=== PATIENT | male | born 1935 | race African-American/Black ===

== ENCOUNTER 2017-02-05 06:06 | Day surgery (SDC) | payer OTHER, BC ==
[~2017-02-05] VITALS: Ht 182.9 cm; Wt 77.1 kg
--- NOTE | ~2017-02-05 | EKG ---
[address] [address] ELECTROCARDIOGRAM REPORT Name: ISIAHEMELIA L Room #: 150-9 [facility]#: [id number] Admission: 02/05/17 Attend Phys: Gab Escamilla MD Discharge: Date of : 39 Report #: [id number] THIS REPORT FOR: //name// [facility] Test Date: 2017-02-05 Test Time: 10:57:01 Pat Name: EMELIA JOYCE Department: Room: 150 9 Gender: M Electrical And Instrumentation Mechanic: MELBA : 1935 Requested By: Gab Escamilla Order Number: [id number] MD: Hari Yoon Measurements Intervals [place] Rate: 58 P: 50 DC: 167 QRS: -19 QRSD: 89 T: 73 QT: 458 QTc: 450 Interpretive Statements Sinus rhythm Left ventricular hypertrophy No previous ECG available for comparison Electronically Signed On 02-06-2017 7:50:31 CDT by Hari Yoon [email or web address] <ELECTRONICALLY SIGNED> By: Hari Yoon MD, [facility] 02/06/17 0750 1057 1057 Hari Yoon MD, FACC /EPI
--- NOTE | ~2017-02-05 | O ---
[facility] [place] [address] OPERATIVE REPORT Name: EMELIA JOYCE Nahun Room #: 150-9 [facility]#: [id number] Admission: 02/05/17 Attend Phys: Gab Escamilla MD Discharge: Date of : 39 Report #: [id number] THIS REPORT FOR: //name// CC: Kelly Escamilla DATE OF OPERATION: 02/05/2017. PREOPERATIVE DIAGNOSIS: Sternal pain syndrome. FINAL DIAGNOSIS: Sternal pain syndrome. OPERATIVE PROCEDURE PERFORMED: Sternal wire removal. SURGEON: Dr. Gab Escamilla. [employer]: None. ANESTHESIA: General. OPERATIVE INDICATIONS: The patient is a 81-year-old male who underwent coronary bypass grafting by ne at [facility] approximately one year ago. The patient has represented with complaints of persistent sternal incisional pain. On examination, he has point tenderness over the wires. The sternum was stable and had completely healed. He is thus brought to the operating room now for sternal wire removal. OPERATIVE SUMMARY: The patient brought to the operating room, placed on the OR table in supine position. After anesthesia was induced via the general endotracheal route, the patient was prepped and draped in sterile fashion with ChloraPrep. We made small incision over each wire. Dissection was carried down to the sternal wires. The wires were cut and were removed. There were total of 3 incisions made. We then closed the wound in multiple layers with absorbable suture. The procedure was completed. The patient was taken to the postanesthesia care unit in stable condition. <ELECTRONICALLY SIGNED> By: Gab Escamilla MD 02/05/17 1258 1231 1247 Gab Escamilla MD /nt
[~2017-02-05 06:06] MED LIST: ASPIR 8181 M1 PO; FLOMAX0.4 MG PO; LOPRESSOR25 PO; NORVASC5 MG PO; OMEPRAZOLE40 MG PO; PRINIVIL40 MG PO; ZETIA10 MG PO
[2017-02-05 10:05] LABS: URINE BILIRUBIN NEGATIVE (Negative); URINE BLOOD TRACE (Negative); URINE COLOR YELLOW; URINE GLUCOSE-RANDOM* NEGATIVE (Negative); URINE KETONES NEGATIVE (Negative); URINE NITRITE NEGATIVE (Negative); URINE PROTEIN (DIPSTICK) 1+ (Negative); URINE SPECIFIC GRAVITY 1.015 (1.003-1.035); URINE UROBILINOGEN 0.2 E.U./dl (0.2-1.0)
[2017-02-05 10:11] LABS: HEMOGLOBIN 17.1 gm/dL (14.0-18.0); MCH 31.6 pg (26.0-34.0); MCHC 34.2 g/dL (28.0-37.0); MCV 92.4 fL (80.0-100.0); RBC 5.41 mil/uL (4.50-6.00); WBC 3.8 thou/uL (4.0-11.0)
[2017-02-05 10:16] LABS: BACTERIA 1-9 Few /HPF (None Seen); CASTS None Seen /LPF (None Seen); CRYSTALS None Seen /LPF (None Seen); SQUAMOUS None Seen /LPF (0-3); URINE RBC None Seen /HPF (0-2); URINE WBC 0-5 Rare /HPF (0-5)
[2017-02-05 10:21] LABS: CALCIUM 9.7 mg/dL (8.5-10.1); CREATININE 1.4 mg/dL (0.7-1.3); POTASSIUM 4.6 mmol/L (3.5-5.1)
[2017-02-05 10:26] LABS: ALBUMIN 3.9 g/dL (3.4-5.0); PROTIME 10.6 Seconds (9.3-11.4); TOTAL BILIRUBIN 1.1 mg/dL (<0.1-1.0); TOTAL PROTEIN 8.3 g/dL (6.4-8.2)
[2017-02-05 11:01] VITALS: BP 153/85
[2017-02-05 11:09] LABS: APTT 27.5 Seconds (24.5-32.8)
[2017-02-05 13:03] VITALS: BP 153/85
== END 2017-02-05 12:45 | disposition home or self-care (01) ==
LOC: OR 06:06 → TBA 06:06 → OR 11:54
PROVIDERS: Thoracic Surgery (Cardiothoracic Vascular Surgery)
DX: M25.519 Pain in unspecified shoulder (principal)
CPT/HCPCS: 50010; 50101; 50386; 50417; 54118; 56524; 56525; 56526; 62110; 62900; 70005